=== PATIENT | female | born 1960 ===

== ENCOUNTER 2017-06-17 06:44 | Inpatient (IN) | payer OTHER ==
[2017-06-17 07:09] VITALS: BMI 30.4
[2017-06-17] MEDS ORDERED: Bupivacaine 0.5% Inj(30mL) ONE (07:33)
[2017-06-17] MEDS ORDERED: Propofol 10 mg/ml Inj (20 ML) ONE (07:37)
[2017-06-17] MEDS ORDERED: Rocuronium 10 mg/ml (5 ml) ONE ×2 (07:38→11:06)
[2017-06-17] MEDS ORDERED: ePHEDrine 50 mg/ml Inj ONE (07:38)
[2017-06-17] MEDS ORDERED: Succinylcholine 200 mg/10 ml Inj IV ONE (07:38)
[2017-06-17] MEDS ORDERED: Lidocaine 4% (Laryng-O-Jet) Kit MM ONE (07:38)
[2017-06-17] MEDS ORDERED: Midazolam 2 MG/2 ML VIAL ONE (07:38)
[2017-06-17] MEDS ORDERED: Phenylephrine 10 mg/ml Inj ONE (07:48)
[2017-06-17] MEDS ORDERED: Neostigmine 1:1000 (1 mg/ml) Inj ONE (07:48)
[2017-06-17] MEDS ORDERED: Lactated Ringer's 1,000 ML IV ONE ×3 (08:20→09:30)
[2017-06-17] MEDS ORDERED: metroNIDAZOLE 500mg/100ml NS 100 ML IVPB ONE (08:53)
[2017-06-17] MEDS ORDERED: Ciprofloxacin 400mg/200ml D5W 400 MG/200 ML BAG IVPB ONE (08:53)
[2017-06-17] MEDS ORDERED: Ciprofloxacin 400mg/200ml D5W IVPB ONE (09:15)
[2017-06-17] MEDS ORDERED: metroNIDAZOLE 500mg/100ml NS IVPB ONE (09:35)
[2017-06-17] MEDS ORDERED: Sodium Chloride 0.9% 1,000 ML IV ONE (09:45)
--- NOTE | 2017-06-17 13:42 | PCM.SURG1 ---
Surgeon's Initial Post Op Note - Surgeon's Notes Surgeon: Dr Calix Contractor Broomcorn Threshing: Dr Rome, Dr Nobles PGY2, Dr Soria PGY3 Type of Anesthesia: General Endo Pre-Operative Diagnosis: colon cancer Operative Findings: see report Post-Operative Diagnosis: as above Operation Performed: robotic left sigmoidectomy. robotic liver biopsy. left axillary deep kym dissection Specimen/Specimens Removed: sigmoid colon. excisional biopsy of liver lesion. left axillary lymph nodes Estimated Blood Loss: EBL {In ML}: 100 Blood Products Given: N/A Drains Used: No Drains (smith) Post-Op Condition: Good Date of Surgery/Procedure: 06/17/17 Time of Surgery/Procedure: 13:42
[2017-06-17] MEDS ORDERED: Lactated Ringer's 1,000 ML IV SCH (14:00)
[2017-06-17] MEDS: HYDROmorphone 0.5 mg/0.5 ml ISec IVP PRN ×4 (14:16→15:27)
[2017-06-17] MEDS: Insulin Regular 100 units/ml SC SCH ×2 (17:58→22:00)
--- NOTE | 2017-06-17 22:55 | CARD ---
APPROVED REPORT EKG Measurement Heart [id number] <Conclusion> Sinus rhythm with occasional premature ventricular complexes Otherwise normal ECG
[2017-06-18] MEDS: Lactated Ringer's 1,000 ML IV SCH ×2 (00:50→19:27)
[2017-06-18 04:50] LABS: HEMOGLOBIN 8.1 g/dL (12.0-16.0); MEAN CELL VOLUME 70.8 fl (81.0-99.0); MEAN CORPUSCULAR HEMOGLOBIN 21.9 pg (27.0-31.0); MEAN CORPUSCULAR HGB CONC 30.9 g/dL (33.0-37.0); RBC 3.7 Mil/uL (3.80-5.20); RED CELL DISTRIBUTION WIDTH 18.4 % (11.5-14.5); WHITE BLOOD COUNT 8.5 K/uL (4.8-10.8)
[2017-06-18 05:18] LABS: ALB/GLOB RATIO 0.9 (1.0-2.1); ALT/SGPT 50 U/L (9-52); AST/SGOT 50 U/L (14-36); BLOOD UREA NITROGEN 6 mg/dl (7-17); GFR AFRICAN-AMERICAN > 60; GFR NON-AFRICAN AMERICAN > 60
--- NOTE | 2017-06-18 07:23 | CP.PCM.PN ---
Subjective - Date & Time of Evaluation Date of Evaluation: 06/18/17 Time of Evaluation: 07:20 - Subjective Subjective: General Surgery: Dr Calix Pt S&E in ICU. POD#1 s/p robotic colectomy. Pt states pain is significant, only mildly controlled with QUALITY CONTROL CLERK. Pt not using button frequently as she does not want to be "doped up". Denies any fevers, chills, nausea or vomiting. Using IS. 2800 urine since OR. Objective - Vital Signs/Intake and Output Vital Signs (last 24 hours): Temp Pulse Resp BP Pulse Ox 99.6 F 109 H 21 125/74 95 06/18/17 04:00 06/18/17 04:00 06/18/17 04:00 06/18/17 04:00 06/18/17 04:00 Intake and Output: 06/18/17 06/18/17 06:59 18:59 Intake Total 1650 Output Total 650 Balance 1000 - Medications Medications: Current Medications Acetaminophen (Tylenol 325mg Tab) 650 mg PO Q6 PRN PRN Reason: Fever >100.4 F Atorvastatin Calcium (Lipitor) 40 mg PO DAILY [facility] Emtricitabine/Tenofovir (Truvada 200 Mg-300 Mg) 1 tab PO DAILY [facility] Enoxaparin Sodium (Lovenox) 40 mg SC DAILY [facility] PRN Reason: Protocol Hydromorphone HCl (Dilaudid 0.2 Mg/Ml Flat Machine Cutter) 6 mg IV CONT PRN; Protocol PRN Reason: Pain, Mild (1-3) Last Admin: 06/17/17 15:40 Dose: 6 mg Lactated Ringer's (Lactated Ringer's) 1,000 mls @ 150 mls/hr IV .Q6H40M [facility] Last Admin: 06/18/17 00:50 Dose: 150 mls/hr Insulin Human Regular (Humulin R) 0 units SC ACHS [facility] PRN Reason: Protocol Last Admin: 06/17/17 22:00 Dose: Not Given Ketorolac Tromethamine (Toradol) 30 mg IVP Q6 [facility] Stop: 06/20/17 04:01 Ondansetron HCl (Zofran Inj) 4 mg IVP Q6 PRN PRN Reason: Nausea/Vomiting Last Admin: 06/17/17 19:25 Dose: 4 mg Raltegravir (Isentress) 800 mg PO DAILY [facility] - Labs Labs: 06/18/17 04:08 06/18/17 04:08 - Constitutional Appears: Non-toxic, No Acute Distress - ENT Exam ENT Exam: Mucous Membranes Moist - Respiratory Exam Respiratory Exam: absent: Accessory Muscle Use, Respiratory Distress - Cardiovascular Exam Cardiovascular Exam: Tachycardia, REGULAR RHYTHM - GI/Abdominal Exam GI & Abdominal Exam: Soft, Tenderness (post-op and appropriate). absent: Distended, Firm, Rigid, Mass - Neurological Exam Neurological Exam: Alert, Awake, Oriented x3 - Psychiatric Exam Psychiatric exam: Normal Affect, Normal Mood - Skin Skin Exam: Normal Color, Warm Assessment and Plan - Assessment and Plan (Free Text) Assessment: 56F s/p robotic sigmoidectomy POD#1 Plan: add toradol 30mg Q6H ATC d/c smith start CLD OOB to chair ok for transfer to med/surg will cont to monitor closely d/w Dr Fifi Soria, PGY3
[2017-06-18] MEDS: Insulin Regular 100 units/ml SC SCH ×4 (07:40→21:54)
[2017-06-18] MEDS: Emtricitabine-Tenofovir 200 mg-300 mg Tab PO SCH (08:28)
[2017-06-18] MEDS: Enoxaparin 40 mg Syringe SC SCH (10:40)
[2017-06-18] MEDS ORDERED: Simethicone 80 mg Chewtab PO PRN (19:37)
[2017-06-19 07:09] LABS: HEMOGLOBIN 7.9 g/dL (12.0-16.0); MEAN CELL VOLUME 72.9 fl (81.0-99.0); MEAN CORPUSCULAR HGB CONC 30.1 g/dL (33.0-37.0); RBC 3.58 Mil/uL (3.80-5.20); RED CELL DISTRIBUTION WIDTH 18.6 % (11.5-14.5); WHITE BLOOD COUNT 8.6 K/uL (4.8-10.8)
[2017-06-19 07:31] LABS: BLOOD UREA NITROGEN 7 mg/dl (7-17); CALCIUM 8.2 mg/dL (8.4-10.2); GFR AFRICAN-AMERICAN > 60; GFR NON-AFRICAN AMERICAN > 60
[2017-06-19] MEDS: Lactated Ringer's 1,000 ML IV SCH ×4 (07:39→17:32)
--- NOTE | 2017-06-19 08:26 | CP.PCM.PN ---
Subjective - Date & Time of Evaluation Date of Evaluation: 06/19/17 Time of Evaluation: 06:00 - Subjective Subjective: General Surgery: Dr Calix s/p robotic sigmoidectomy POD#2. Patient seen and examined at bedside this AM. was resting comfortably during encounter. Pt had an episode of approx 30cc of dark bilious vomiting. Pain is controlled w/ scheduled toradol and ARTIST CONSULTANT. Currently denies fevers, chills, chest pain, shortness of breath, nausea, vomiting, diarrhea Objective - Vital Signs/Intake and Output Vital Signs (last 24 hours): Temp Pulse Resp BP Pulse Ox 98.2 F 87 20 129/72 94 L 06/19/17 08:19 06/19/17 08:19 06/19/17 08:19 06/19/17 08:19 06/19/17 08:19 - Medications Medications: Current Medications Acetaminophen (Tylenol 325mg Tab) 650 mg PO Q6 PRN PRN Reason: Fever >100.4 F Last Admin: 06/18/17 14:47 Dose: 650 mg Acetaminophen (Tylenol 325mg Tab) 650 mg PO Q6 PRN PRN Reason: Pain, Mild (1-3) Last Admin: 06/19/17 01:20 Dose: 650 mg Atorvastatin Calcium (Lipitor) 40 mg PO DAILY [facility] Last Admin: 06/18/17 08:28 Dose: 40 mg Emtricitabine/Tenofovir (Truvada 200 Mg-300 Mg) 1 tab PO DAILY [facility] Last Admin: 06/18/17 08:28 Dose: 1 tab Enoxaparin Sodium (Lovenox) 40 mg SC DAILY [facility] PRN Reason: Protocol Last Admin: 06/18/17 10:40 Dose: 40 mg Hydromorphone HCl (Dilaudid 0.2 Mg/Ml School Athletic Director) 0 mg IV Q10M PRN; Protocol PRN Reason: Pain, moderate (4-7) Last Admin: 06/18/17 20:18 Dose: 6 mg Lactated Ringer's (Lactated Ringer's) 1,000 mls @ 150 mls/hr IV .Q6H40M [facility] Last Admin: 06/19/17 07:39 Dose: Not Given Insulin Human Regular (Humulin R) 0 units SC ACHS [facility] PRN Reason: Protocol Last Admin: 06/18/17 21:54 Dose: Not Given Ketorolac Tromethamine (Toradol) 30 mg IVP Q6 [facility] Stop: 06/20/17 04:01 Last Admin: 06/19/17 03:28 Dose: 30 mg Ondansetron HCl (Zofran Inj) 4 mg IVP Q6 PRN PRN Reason: Nausea/Vomiting Last Admin: 06/19/17 00:59 Dose: 4 mg Raltegravir (Isentress) 800 mg PO DAILY [facility] Last Admin: 06/18/17 08:28 Dose: 800 mg - Labs Labs: 06/19/17 05:20 06/19/17 05:20 - Constitutional Appears: Non-toxic, No Acute Distress - Head Exam Head Exam: ATRAUMATIC - Eye Exam Eye Exam: EOMI. absent: Scleral icterus - Respiratory Exam Respiratory Exam: NORMAL BREATHING PATTERN. absent: Accessory Muscle Use, Respiratory Distress - Cardiovascular Exam Cardiovascular Exam: +S1, +S2. absent: Bradycardia, Tachycardia - GI/Abdominal Exam GI & Abdominal Exam: Guarding, Soft, Tenderness. absent: Distended, Firm, Rigid Additional comments: voluntary guarding appropriately tender around incision dressings C/D/I - Extremities Exam Extremities Exam: Normal Inspection. absent: Calf Tenderness - Neurological Exam Neurological Exam: Alert, Awake, Oriented x3 - Skin Skin Exam: Intact, Warm Assessment and Plan - Assessment and Plan (Free Text) Assessment: 56F s/p robotic sigmoidectomy POD#2 Plan: Pain control w/ scheduled Toradol will hold ARTIST CONSULTANT for now and monitor pain control will continue w/ CLD for now due to vomiting encourage IC and OOB 2chair monitor vitals discussed w/ Dr. Calix surgical attending PGY1
[2017-06-19] MEDS: Insulin Regular 100 units/ml SC SCH ×4 (08:44→21:40)
[2017-06-19] MEDS: Emtricitabine-Tenofovir 200 mg-300 mg Tab PO SCH (08:45)
[2017-06-19] MEDS: Enoxaparin 40 mg Syringe SC SCH (08:58)
--- NOTE | 2017-06-19 09:27 | PCM.OP ---
Operative Report - Operative Report Date of Surgery/Procedure: 06/17/17 Time of Surgery/Procedure: 09:00 Surgeon: Dr. Sawyer Calix Drill Hand: Dr. Drew Rome, Dr. Cordoba Anesthesia/Sedation: general/Dr. Bowen Pre-Operative Diagnosis: 2-gutkx-svmtxga colon cancer. 2-liver metastases. 3- left axillary lymph nodes whichare avidly active on recent PET CT scan Post-Operative Diagnosis: same Indication for Surgery: as above Operative Findings: recto-sigmoid cancer with multiple livere metastases and axillary node enlargement Procedure/Operation Description: 1-left recto-sgmoid colectomy with take down of the splenic flexure. 2-left ureterolysis. 3-left complete axillary dissection. 4-liver biopsy. 5-ureteral stenting with ICG infusion (separate procedure Dr. Rome). Brief History: This is a 56 year old woman referred ny Dr. Lester for recent diagnosis of colon cancer involving the recto-sigmoid colon approximatly 21 cm from the anal verge whihc was positive on endoscopic biospy. CT scan revealed multiple intrahepatic lesion and subsequent PET CT revealed finding suggestive of liver metastases plus a highly positive area in the left axilla consistent with metastatic disease. she now undergoes exploration. Description of the Procedure: The patient was brought to the operating room and after induction of endotracheal anesthesia she was prepped and drapped in the usual sterile manner. After Dr. Rome infused ICG through ureteral stents bilaterally (separate dictation Dr. Rome) the area above the umbilicus was injectd with marcaine. Using a 15 blade the skin was enetered and the fascia was brought anteriorly and opened with sharp technique. An 8 mm robotic trocar was palced and the abdomen was infused with pneumoperitoneum. The abdomen was inspected and mutliple liver lesions were noted consistent with the imaging findings. Four other trocars were placed stategically in the usal fashion. OPERATION #1: After taking control of the robtic console the left colon was mobilized from just at the levl of the splenic flexure to the rectum distally. The sleion was obvious and protruding to the level of the serosa. With the colon retracted laterally the mesnetery was incised with elelctrocautery in oder to have more than a 5 cm margin both distally and proximally. The left ureter was dissected from the left pelvic side wall using ICG imaging intermittently during the disection. With the ureter always in vison after it was dissected the colon was mobilized accordingly. Then the small vessel were dessicated accordingly from the take off of the inferior mesenteric artery to the colon in order to alow for an adequate number of lymph nodes to be included in the specimen. The inferior mesenteric artery was dissectd separately and clipped with vessel clips. Once comopleted the colon was transected proximally with the robotic stapler and distally in the same fashion. The specimen was left in-situ. A colonic anastomosis was created by a hand-sewn technique with a side to side anastomosis using continuous 3-0 vicryl for the mucosa and interrupted 3-0 vicryl for the serosa. The anastomosis was completed and felt to be adeqaute. OPERATION #2: The robot was then un-docked and re-docked to the upper abdomen where multiple liver lesions were noted. Using blunt and sharp dissection with the aid of electrocautery a lesion in segment 4 of the left hemiliver was excided en-bloc with particular attention to hemostasis. This was snet separately to pathology. Hemostasis was denmed adeqaute. The robot was then discontected and uner videoscopic control both the liver and the colon anastomosis were exaniend and felt to be adeqaute. The pneumperitoneum was released and all trocars were removed. The umbilical incision was extended for approximately 5 cm andthe fascia was opened. The left recto-sigmoid coln specimen was removed and sent to pathology separately. The trocar sites were clsoed with 2-0 vicryl and the mini-midline incisioin was closed with 1 PDS for the facsia. Jimbo were placed on the skin and a clean dressing was applied. OPERATION #3: With the patient still intubated the left axilla was prepped and drapped in the usual sterile manner. The previously marked area of the axilla was palpated and the lesions were felt. An incison waas made into the skin with a 15 blade and with blunt and sharp disection with the aid of electocautery the mass of lymph nodes was dissected en-bloc to the level of the axillary vein with meticuloius attetnion to hemostasis and attention to the axillary nerves. thes lesion was removved en-bloc and sent to pathology separately. the skin was closed with continuous 3-0 vicryl and 4-0 monocryl. A clean dressoing was applied. The aptient was then awakened, extubated and brought to the recovery room in stable condition. Estimated Blood Loss: 100 cc Blood Replaced: 2700 cc crystalloids Sponge/Instrument Count: correct Drains: none Complications: none Specimen: 5-[id number] colon. 2-liver biopsy. 3-complete axillary lymph node biopsy Discharge & Condition: stable
[2017-06-20] MEDS: Lactated Ringer's 1,000 ML IV SCH ×4 (02:29→20:50)
--- NOTE | 2017-06-20 07:48 | CP.PCM.PN ---
Subjective - Date & Time of Evaluation Date of Evaluation: 06/20/17 Time of Evaluation: 07:46 - Subjective Subjective: General Surgery: Dr Calix Pt S&E. OOB and ambulating on 6T. Pt reports she is doing well. Pain is controlled on toradol. Minimal narcotic use. Pt reports she is passing flatus. Denies any further N/V since discontinuing MOTORIZED SQUAD COMMANDING OFFICER use. Denies f/c, sob or chest pain. Tolerating CLD. Objective - Vital Signs/Intake and Output Vital Signs (last 24 hours): Temp Pulse Resp BP Pulse Ox 98.0 F 87 20 142/82 98 06/20/17 00:58 06/20/17 00:58 06/20/17 00:58 06/20/17 00:58 06/20/17 00:58 - Medications Medications: Current Medications Acetaminophen (Tylenol 325mg Tab) 650 mg PO Q6 PRN PRN Reason: Fever >100.4 F Last Admin: 06/18/17 14:47 Dose: 650 mg Atorvastatin Calcium (Lipitor) 40 mg PO DAILY [facility] Last Admin: 06/19/17 08:45 Dose: 40 mg Emtricitabine/Tenofovir (Truvada 200 Mg-300 Mg) 1 tab PO DAILY [facility] Last Admin: 06/19/17 08:45 Dose: 1 tab Enoxaparin Sodium (Lovenox) 40 mg SC DAILY [facility] PRN Reason: Protocol Last Admin: 06/19/17 08:58 Dose: 40 mg Lactated Ringer's (Lactated Ringer's) 1,000 mls @ 75 mls/hr IV .[id number] [facility] Insulin Human Regular (Humulin R) 0 units SC ACHS [facility] PRN Reason: Protocol Last Admin: 06/19/17 21:40 Dose: Not Given Ondansetron HCl (Zofran Inj) 4 mg IVP Q6 PRN PRN Reason: Nausea/Vomiting Last Admin: 06/19/17 13:59 Dose: 4 mg Raltegravir (Isentress) 800 mg PO DAILY [facility] Last Admin: 06/19/17 08:45 Dose: 800 mg - Labs Labs: 06/19/17 05:20 06/19/17 05:20 - Constitutional Appears: Non-toxic, No Acute Distress - ENT Exam ENT Exam: Mucous Membranes Moist - Respiratory Exam Respiratory Exam: absent: Accessory Muscle Use, Respiratory Distress - Cardiovascular Exam Cardiovascular Exam: REGULAR RHYTHM. absent: Tachycardia - GI/Abdominal Exam GI & Abdominal Exam: Soft, Tenderness (post-op and appropriate). absent: Distended, Firm, Guarding, Rigid Additional comments: midline dressing changed at bedside, c/d/i. left axillary dressing c/d/i - Neurological Exam Neurological Exam: Alert, Awake, Oriented x3 - Psychiatric Exam Psychiatric exam: Normal Affect, Normal Mood - Skin Skin Exam: Normal Color, Warm Assessment and Plan - Assessment and Plan (Free Text) Assessment: 56F POD#3 s/p robotic sigmoidectomy, liver bx, left axillary dissection Plan: adv to regular soft diet d/c MOTORIZED SQUAD COMMANDING OFFICER cont toradol will add percocet PRN OOB and ambulate with PT f/u path Liver CT triple phase d/c planning d/w Dr Fifi Soria, PGY3
[2017-06-20] MEDS ORDERED: Iohexol 300 100 ML IJ ONE (08:42)
[2017-06-20] MEDS ORDERED: Sodium Chloride 0.9% 100 ML ONE (08:42)
[2017-06-20] MEDS ORDERED: Oxycodone/Acetaminophen 5/325 mg Tab PO PRN (08:56)
--- NOTE | 2017-06-20 08:59 | OP ---
PROCEDURE DATE: PREOPERATIVE DIAGNOSES: Colon cancer with liver metastasis. POSTOPERATIVE DIAGNOSES: Colon cancer with liver metastasis. PROCEDURE PERFORMED: Cystoscopy with bilateral ureteral catheterization and injection of dye. SURGEON: Drew Rome MD TYPE OF ANESTHESIA: General endotracheal. ESTIMATED BLOOD LOSS: Minimal. COMPLICATIONS: None. INDICATIONS FOR THE PROCEDURE: The patient is a 56-year-old who was undergoing a colectomy for metastatic colon cancer and liver biopsy and I was asked by Dr. Calix from General Surgery to perform a cystoscopy with stenting of the ureters due to the difficulty and complication of the procedure. This was going to be robotic surgery therefore injection of dye would allow to identify the ureters due to florescent technology. The patient was consented and taken to the OR. DESCRIPTION OF PROCEDURE: After adequate anesthesia was obtained, the patient was placed in dorsal lithotomy position. She was prepped and draped in the surgical gown and gloved. At this point, a cystoscope was inserted into the bladder under direct visualization. The bladder were visualized, appeared to be in normal in size with no evidence of stones, polyps or any other abnormalities. Both ureters, ureteral ostia were in the normal anatomical position. A 5-[place]izen [place] open ended catheter was placed inside to the left ureter and advanced all the way down to the distal ureter. A 5 mL of IC-Green were injected into the left ureter. At this point, the catheter was retrieved. Attention was then on the right ureter, where catheter was inserting to the right ureteral orifice all the way to the distal ureter and 5 mL of IC-Green was then injected into the distal ureter. The catheter was then removed. The cystoscope was removed and a 16-Citizen [place] Melgar was placed in the bladder. At the end of the procedure, all tapes and instruments counts were correct. The patient was handed over to Dr. Calix who performed colectomy and liver biopsy. Drew Rome MD
[2017-06-20 09:02] LABS: MEAN CELL VOLUME 71.9 fl (81.0-99.0); MEAN CORPUSCULAR HEMOGLOBIN 22.1 pg (27.0-31.0); MEAN CORPUSCULAR HGB CONC 30.7 g/dL (33.0-37.0); RBC 3.63 Mil/uL (3.80-5.20); RED CELL DISTRIBUTION WIDTH 20.8 % (11.5-14.5)
[2017-06-20] MEDS: Enoxaparin 40 mg Syringe SC SCH (09:11)
[2017-06-20] MEDS: Emtricitabine-Tenofovir 200 mg-300 mg Tab PO SCH (09:11)
[2017-06-20 09:12] LABS: BLOOD UREA NITROGEN 8 mg/dl (7-17); CALCIUM 8.3 mg/dL (8.4-10.2); GFR AFRICAN-AMERICAN > 60; GFR NON-AFRICAN AMERICAN > 60
[2017-06-20] MEDS: Insulin Regular 100 units/ml SC SCH ×4 (09:12→22:03)
[2017-06-20] MEDS: Bisacodyl 5mg EC Tab PO SCH (12:03)
--- NOTE | 2017-06-20 16:12 | CT ---
PROCEDURE: CT Abdomen and Pelvis with and without intravenous contrast HISTORY: eval liver lesions COMPARISON: Comparison is made with the previous CT of the chest including upper abdomen dated 02/27/2014 previous ultrasound of the abdomen dated 06/15/2012 TECHNIQUE: Axial images of the abdomen were obtained in the pre contrast, portal venous and delayed phases of enhancement. Coronal and sagittal reformats were generated. Contrast dose: 95 cc of Omnipaque 300 Radiation dose: Total exam DLP = 2938.46 mGy-cm. This CT exam was performed using one or more of the following dose reduction techniques: Automated exposure control, adjustment of the mA and/or kV according to patient size, and/or use of iterative reconstruction technique. FINDINGS: LOWER THORAX: Airspace consolidation noted at the right middle lobe and right lower lobe may represent pneumonia or less likely atelectasis. Small right pleural effusion is also noted. There is airspace consolidation at the left lung base associated with trace left pleural effusion. LIVER: The liver is heterogeneous mildly enlarged. There is 3 x 1.5 centimeter slightly low-attenuation lesion noted at the anterior peripheral aspect of the right liver lobe demonstrates slightly less enhancement compared to the rest of the liver. There is also adjacent 1.7 centimeter slightly low-attenuation lesion in the right liver lobe adjacent to the falciform ligament. There is also slightly low-attenuation lesion at the peripheral inferior aspect of the right liver lobe measures 1.7 centimeter. These lesions are new compared to the previous study. GALLBLADDER AND BILE DUCTS: Unremarkable. PANCREAS: Unremarkable. No gross lesion or ductal dilatation. SPLEEN: The spleen is mildly enlarged measures 13.1 centimeter in the largest diameter. ADRENALS: Unremarkable. No mass. KIDNEYS AND URETERS: Unremarkable. No hydronephrosis. No solid mass. VASCULATURE: Unremarkable. No aortic aneurysm. BOWEL: There is a duodenal wall thickening noted. There are postsurgical changes and bowel anastomosis noted at the left lower abdomen. There is adjacent fat stranding and trace fluid seen in the left mid and lower abdomen. No evidence of bowel obstruction. APPENDIX: No evidence of appendicitis. PERITONEUM: Trace amount of fluid noted in the lower abdomen and small amount of fluid seen in the pelvis. No evidence of free air. LYMPH NODES: Unremarkable. No enlarged lymph nodes. BLADDER: Unremarkable. REPRODUCTIVE: Unremarkable. BONES: No acute fracture. OTHER FINDINGS: None. IMPRESSION: Three slightly low-attenuation mass lesions in the right liver with the largest lesion seen at the anterior aspect of the right liver lobe measures 3 centimeter. The possibility of liver metastasis should be considered. Postsurgical changes suggestive of recent bowel anastomosis at the left lower abdomen. Adjacent fat stranding and trace fluid noted in the left mid and lower abdomen. Small amount of fluid in also noted in the pelvis. No evidence of free air or discrete fluid collection. Mild splenomegaly. Bilateral lower lobe and right middle lobe airspace consolidation may represent aspiration pneumonia or less likely atelectasis.
[2017-06-21 08:23] LABS: HEMOGLOBIN 8.2 g/dL (12.0-16.0); MEAN CELL VOLUME 71.5 fl (81.0-99.0); MEAN CORPUSCULAR HGB CONC 30.8 g/dL (33.0-37.0); RBC 3.74 Mil/uL (3.80-5.20); RED CELL DISTRIBUTION WIDTH 20.7 % (11.5-14.5); WHITE BLOOD COUNT 5.2 K/uL (4.8-10.8)
[2017-06-21 08:36] LABS: BLOOD UREA NITROGEN 10 mg/dl (7-17); CALCIUM 8.5 mg/dL (8.4-10.2); GFR AFRICAN-AMERICAN > 60; GFR NON-AFRICAN AMERICAN > 60
[2017-06-21] MEDS ORDERED: Benzocaine/Menthol (Cepacol) Lozenge PO PRN (08:36)
[2017-06-21] MEDS: Emtricitabine-Tenofovir 200 mg-300 mg Tab PO SCH ×2 (10:37→16:41)
[2017-06-21] MEDS: Bisacodyl 5mg EC Tab PO SCH ×2 (10:38→16:40)
[2017-06-21] MEDS: Insulin Regular 100 units/ml SC SCH ×4 (10:38→22:05)
[2017-06-21] MEDS ORDERED: Propofol 10 mg/ml Inj (20 ML) ONE (11:48)
[2017-06-21] MEDS ORDERED: Phenylephrine 10 mg/ml Inj ONE (11:57)
[2017-06-21] MEDS ORDERED: Protamine 50mg/5mL Inj IV ONE (12:27)
[2017-06-21] MEDS ORDERED: Lidocaine 1% Inj (20ml) ONE (12:28)
[2017-06-21] MEDS ORDERED: Iohexol 300 100 ML IJ ONE (12:28)
[2017-06-21] MEDS ORDERED: Lactated Ringer's 1,000 ML IV ONE (12:40)
[2017-06-21] MEDS ORDERED: Midazolam 2 MG/2 ML VIAL ONE (12:48)
[2017-06-21] MEDS ORDERED: Albuterol HFA 90 mcg/actuation (8 g) ONE (13:42)
[2017-06-21] MEDS ORDERED: Lactated Ringer's 1,000 ML IV SCH (14:00)
--- NOTE | 2017-06-21 14:21 | RAD ---
PROCEDURE: Intraoperative Fluoroscopy. HISTORY: PORT A CATH FINDINGS: Fluoroscopic assistance was provided. 49.2 seconds fluoroscopy time utilized during this procedure. Please refer to the operative report for additional details.
--- NOTE | 2017-06-21 14:22 | RAD ---
PROCEDURE: CHEST RADIOGRAPH, 1 VIEW HISTORY: s/p right subclavian port-a-cath COMPARISON: Go comparison made with chest radiograph 05/15/2016. None available. FINDINGS: Interval placement right subclavian Port-A-Cath with tip in the SVC. LUNGS: Elevation right hemidiaphragm with mild right basilar atelectasis. Questionable tiny right-sided effusion. Left lung appears relatively clear. PLEURA: No pneumothorax or pleural fluid seen. CARDIOVASCULAR: Heart is mildly enlarged OSSEOUS STRUCTURES: No significant abnormalities. VISUALIZED UPPER ABDOMEN: Normal. OTHER FINDINGS: None. IMPRESSION: Interval placement right sided MediPort as above. Elevation right hemidiaphragm with mild right basilar atelectasis. Questionable small right-sided effusion. No evidence of pneumothorax.
--- NOTE | 2017-06-21 15:56 | PCM.SURG1 ---
Surgeon's Initial Post Op Note - Surgeon's Notes Surgeon: Dr Calix Director Investment Banking: Dr Soria PGY3 Type of Anesthesia: IV Sedation Pre-Operative Diagnosis: colon cancer Operative Findings: see report Post-Operative Diagnosis: as above Operation Performed: attempted RIJ insertion with US. Right subclavian port-a- cath insertion w/ flouroscopic guidance Specimen/Specimens Removed: none Estimated Blood Loss: EBL {In ML}: 10 Blood Products Given: N/A Drains Used: No Drains Post-Op Condition: Good Date of Surgery/Procedure: 06/21/17 Time of Surgery/Procedure: 15:55
[2017-06-22] MEDS: Insulin Regular 100 units/ml SC SCH ×2 (07:07→11:37)
[2017-06-22 07:40] VITALS: BP 157/81; PULSE 69; RESP 19; TEMP 98.2; O2SAT 97
[2017-06-22] MEDS: Bisacodyl 5mg EC Tab PO SCH (08:02)
[2017-06-22] MEDS: Emtricitabine-Tenofovir 200 mg-300 mg Tab PO SCH (08:03)
[2017-06-22 11:31] LABS: % CD4 (T HELPER CELL) 23 Percent (30-61); % CD8 (SUPPRESSOR T CELL) 32 Percent (12-42); ABSOLUTE CD4 CELLS 240 Cells/mcL (490-1740); ABSOLUTE CD8 CELLS 331 Cells/mcL (180-1170); ABSOLUTE LYMPHOCYTES 1030 Cells/mcL (850-3900); HELPER/SUPPRESSOR RATIO 0.73 Ratio (0.86-5.00)
--- NOTE | 2017-06-22 15:55 | CP.PCM.DIS ---
Provider - Provider Date of Admission: 06/17/17 13:32 Attending physician: Sawyer Calix MD Primary care physician: Gary Anderson MD Time Spent in preparation of Discharge (in minutes): 30 Hospital Course - Lab Results Lab Results: Micro Results 06/17/17 13:45 Other: Please Indicate Gram Stain - Final 06/17/17 13:45 Other: Please Indicate Wound Culture - Final No growth. 06/17/17 18:30 Naris MRSA Culture (Admit) - Final MRSA NOT DETECTED Most Recent Lab Values WBC 5.2 K/uL (4.8-10.8) 06/21/17 08:05 RBC 3.74 Mil/uL (3.80-5.20) L 06/21/17 08:05 Hgb 8.2 g/dL (12.0-16.0) L 06/21/17 08:05 Hct 26.7 % (34.0-47.0) L 06/21/17 08:05 MCV 71.5 fl (81.0-99.0) L 06/21/17 08:05 MCH 22.0 pg (27.0-31.0) L 06/21/17 08:05 MCHC 30.8 g/dL (33.0-37.0) L 06/21/17 08:05 RDW 20.7 % (11.5-14.5) H 06/21/17 08:05 Plt Count 274 K/uL (130-400) 06/21/17 08:05 Sodium 142 mmol/l (132-148) 06/21/17 08:05 Potassium 3.7 MMOL/L (3.6-5.0) 06/21/17 08:05 Chloride 108 mmol/L (98-107) H 06/21/17 08:05 Carbon Dioxide 23 mmol/L (22-30) 06/21/17 08:05 Anion Gap 15 (10-20) 06/21/17 08:05 BUN 10 mg/dl (7-17) 06/21/17 08:05 Creatinine 0.5 mg/dl (0.7-1.2) L 06/21/17 08:05 Est GFR ( Amer) > 60 06/21/17 08:05 Est GFR (Non-Af Amer) > 60 06/21/17 08:05 POC Glucose (mg/dL) 237 mg/dL (65-110) H 06/22/17 11:12 Random Glucose 230 mg/dL (65-105) H 06/21/17 08:05 Calcium 8.5 mg/dL (8.4-10.2) 06/21/17 08:05 Total Bilirubin 0.4 mg/dl (0.2-1.3) 06/18/17 04:08 AST 50 U/L (14-36) H 06/18/17 04:08 ALT 50 U/L (9-52) 06/18/17 04:08 Alkaline Phosphatase 129 U/L (38-126) H 06/18/17 04:08 Total Protein 6.3 G/DL (6.3-8.2) 06/18/17 04:08 Albumin 3.0 g/dL (3.5-5.0) L D 06/18/17 04:08 Globulin 3.3 gm/dL (2.2-3.9) 06/18/17 04:08 Albumin/Globulin Ratio 0.9 (1.0-2.1) L 06/18/17 04:08 Absolute Lymphs (Flow) 1030 Cells/mcL (850-3900) 06/21/17 17:36 % CD4 Cells 23 Percent (30-61) L 06/21/17 17:36 Absolute CD4 Count 240 Cells/mcL (490-1740) L 06/21/17 17:36 T-Help/Suppress Ratio 0.73 Ratio (0.86-5.00) L 06/21/17 17:36 % CD8 Cells 32 Percent (12-42) 06/21/17 17:36 Absolute CD8 Count 331 Cells/mcL (180-1170) 06/21/17 17:36 Blood Type O NEGATIVE 06/17/17 07:25 Blood Type Confirm O NEGATIVE 06/17/17 08:29 Antibody Screen Negative 06/17/17 07:25 Crossmatch See Detail 06/17/17 07:25 BBK History Checked No verified bt 06/17/17 07:25 - Hospital Course Hospital Course: 56 y/o F w/ stage [address] to [facility] on 06/17/17 for elective Robotic colon resection, liver biopsy, and axillary lymph node dissection. Pt tolerated the procedure well with no complications. Pt was kept for pain management and to monitor return of bowel function. Once pt was tolerating a regular diet, pt underwent portacath placement. Pt tolerated the procedure well w/ no complications. Pt was kept an additional night for pain management and monitor. This morning, pt is OOB to chair, tolerating PO intake. Port is functioning w/ no complications. Pain is well controlled w/ PO medications. Pt is cleared for discharge to home w/ instructions to see Dr. Calix in office next week. Discharge Exam - Head Exam Head Exam: ATRAUMATIC, NORMAL INSPECTION - Eye Exam Eye Exam: Normal appearance - ENT Exam ENT Exam: Mucous Membranes Moist - Respiratory Exam Respiratory Exam: NORMAL BREATHING PATTERN. absent: Accessory Muscle Use, Respiratory Distress - Cardiovascular Exam Cardiovascular Exam: absent: Bradycardia, Tachycardia - GI/Abdominal Exam GI & Abdominal Exam: Soft, Tenderness (minimal TTP). absent: Distended, Guarding, Rebound, Rigid Additional comments: dressing c.d.i abd binder in place - Extremities Exam Extremities exam: normal inspection - Neurological Exam Neurological exam: Alert, Oriented x3 - Psychiatric Exam Psychiatric exam: Normal Affect, Normal Mood - Skin Skin Exam: Dry, Normal Color, Warm Discharge Plan - Follow Up Plan Condition: GOOD Disposition: HOME/ ROUTINE Instructions: Portacath (DC), Cystoscopy (DC), Colectomy Additional Instructions: follow up with primary MD in 7-[address] Calix's office for an appointment next week Take all medication as prescribed Pt may take over the counter pain medication Tylenol every 4-6hours Advil/Motrin every 6 hours or Aleve every 12 hours Pt may shower Do not soak incisions no pools, tubs, baths no heavy lifting for 3weeks Visiting Nurse Services eval at home Referrals: Gary Anderson MD [Primary Care Provider] - Sawyer Calix MD [Medical Doctor] -
== END 2017-06-22 12:22 | disposition home health service (06) | DRG 330 ==
LOC: H.OPSURG 06:44 → H.ICU/CCU 13:32 → H.MEDSURG1 06-18 11:15
PROVIDERS: ADMIT Surgery; ATTEND Surgery
PROC: 07T60ZZ Resection of Left Axillary Lymphatic, Open Approach (ICD-10-PCS; 2017-06-17)
PROC: 0TN70ZZ Release Left Ureter, Open Approach (ICD-10-PCS; 2017-06-17)
PROC: 0T788DZ Dilation of Bilateral Ureters with Intraluminal Device, Via Natural or Artificial Opening Endoscopic (ICD-10-PCS; 2017-06-17)
PROC: 8E0W0CZ Robotic Assisted Procedure of Trunk Region, Open Approach (ICD-10-PCS; 2017-06-17)
PROC: 0DTN0ZZ Resection of Sigmoid Colon, Open Approach (ICD-10-PCS; principal; 2017-06-17 08:45)
PROC: 0FB20ZX Excision of Left Lobe Liver, Open Approach, Diagnostic (ICD-10-PCS; 2017-06-17 08:45)
DX: C19 Malignant neoplasm of rectosigmoid junction (principal); C78.7 Secondary malignant neoplasm of liver and intrahepatic bile duct; C77.3 Secondary and unspecified malignant neoplasm of axilla and upper limb lymph nodes; Z88.1 Allergy status to other antibiotic agents; Z88.0 Allergy status to penicillin

== ENCOUNTER 2017-07-08 12:40 | Inpatient (IN) | payer OTHER ==
[2017-07-08 12:41] VITALS: BMI 30.4
[2017-07-08] MEDS ORDERED: Sodium Chloride 0.9% 1,000 ML IV STA (13:12)
--- NOTE | 2017-07-08 13:22 | ED PDOC ---
HPI:Nausea, Vomiting, Diarrhea Time Seen by Provider: 07/08/17 13:07 Chief Complaint (Nursing): GI Problem Chief Complaint (Provider): GI Problem History Per: Patient History/Exam Limitations: no limitations Onset/Duration Of Symptoms: Days (x2) Current Symptoms Are (Timing): Still Present Additional Complaint(s): 56 year old female with medical history of colon cancer, HIV, diabetes and hypercholesterolemia, presents to the emergency department with a complaint of nausea and vomiting status post chemo treatment yesterday for metastatic colon cancer. She denied any fever, chills or diarrhea. Patient reported history of colon resection surgery on 06/22/17. PMD: none provided Past Medical History Reviewed: Historical Data, Nursing Documentation, Vital Signs Vital Signs: Last Vital Signs Temp 98.3 F 07/08/17 12:44 Pulse 94 H 07/08/17 12:44 Resp 20 07/08/17 12:44 BP 122/77 07/08/17 12:44 Pulse Ox 98 07/08/17 12:44 - Medical History PMH: Anemia, Arthritis (feet), Asthma, Bronchitis, COPD, Diabetes, Fractures, HIV, Hypercholesterolemia, Pneumonia Denies: Chronic Kidney Disease - Surgical History Surgical History: Appendectomy, - Family History Family History: States: Unknown Family Hx - Social History Current smoker - smoking cessation education provided: No Alcohol: None Drugs: Denies - Home Medications Home Medications: Ambulatory Orders Medication Instructions Recorded Emtricitabine/Tenofovir Diso 1 tab PO DAILY 05/15/16 [Truvada 200 MG-300 MG] Insulin Aspart [Novolog Flexpen] 18 unit SQ AC 05/15/16 Insulin Glargine,Hum.rec.anlog 60 unit SQ DAILY 05/15/16 [Toujeo Solostar] Raltegravir Potassium [Isentress] 800 mg PO DAILY 05/15/16 Rosuvastatin Calcium [Crestor] 20 mg PO DAILY 05/15/16 Acetaminophen [Tylenol 325mg tab] 650 mg PO Q6 PRN tab 06/22/17 - Allergies Allergies/Adverse Reactions: Allergies Allergy/AdvReac Type Severity Reaction Status Date / Time levofloxacin [From Levaquin] Allergy NAUSEA Verified 05/27/15 11:34 Penicillins Allergy RASH Verified 05/15/16 12:51 moxifloxacin HCl AdvReac NAUSEA Verified 05/27/15 11:35 [From Avelox] Review of Systems ROS Statement: Except As Marked, All Systems Reviewed And Found Negative Constitutional: Negative for: Fever, Chills Gastrointestinal: Positive for: Nausea, Vomiting. Negative for: Diarrhea Physical Exam - Reviewed Nursing Documentation Reviewed: Yes Vital Signs Reviewed: Yes - Physical Exam Appears: Positive for: No Acute Distress ENT: Positive for: Pharynx Is (within normal limits), Other (dry mucous membranes) Cardiovascular/Chest: Positive for: Regular Rate, Rhythm, Chest Non Tender Respiratory: Positive for: Normal Breath Sounds. Negative for: Decreased Breath Sounds, Wheezing, Respiratory Distress Gastrointestinal/Abdominal: Positive for: Normal Exam, Bowel Sounds (present), Soft. Negative for: Tenderness Extremity: Positive for: Normal ROM (upper/lower). Negative for: Pedal Edema ( bilateral), Calf Tenderness (bilateral) Neurologic/Psych: Positive for: Alert (x3), Oriented. Negative for: Motor/ Sensory Deficits - ECG O2 Sat by Pulse Oximetry: 98 (RA) Pulse Ox Interpretation: Normal Medical Decision Making Medical Decision Making: Initial Impression: Nausea; Vomiting; Colon CA Initial Plan: * EKG * CMP * Urine dipstick * CBC * NS 1,000ml IV per 200mls/hr * Zofran 4mg IVP Scribe Attestation: Documented by Mariajose Manrique, acting as a scribe for John High MD. Provider Scribe Attestation: All medical record entries made by the Scribe were at my direction and personally dictated by me. I have reviewed the chart and agree that the record accurately reflects my personal performance of the history, physical exam, medical decision making, and the department course for this patient. I have also personally directed, reviewed, and agree with the discharge instructions and disposition. Disposition - Disposition Forms: Us[employer] (Danish)
[2017-07-08 13:26] LABS: BASO # 0.1 K/uL (0.0-0.2); BASO % 0.3 % (0.0-2.0); EOS # 0.1 K/uL (0.0-0.7); EOS % 0.4 % (0.0-4.0); HEMOGLOBIN 10.6 g/dL (12.0-16.0); LYMPH # 1.6 K/uL (1.0-4.3); LYMPH % 8.1 % (20.0-40.0); MEAN CELL VOLUME 72.3 fl (81.0-99.0); MEAN CORPUSCULAR HGB CONC 30.5 g/dL (33.0-37.0); MEAN PLATELET VOLUME 8.5 fl (7.2-11.7); MONO # 0.2 K/uL (0.0-0.8); MONO % 0.8 % (0.0-10.0); NEUT # 18.2 K/uL (1.8-7.0); NEUT % 90.4 % (50.0-75.0); PLATELET COUNT 291 K/uL (130-400); RED CELL DISTRIBUTION WIDTH 23.5 % (11.5-14.5); WHITE BLOOD COUNT 20.1 K/uL (4.8-10.8)
[2017-07-08 13:41] LABS: ALB/GLOB RATIO 0.9 (1.0-2.1); ALBUMIN 3.8 g/dL (3.5-5.0); ALT/SGPT 50 U/L (9-52); AST/SGOT 59 U/L (14-36); BLOOD UREA NITROGEN 18 mg/dl (7-17); CALCIUM 9.4 mg/dL (8.4-10.2); GFR AFRICAN-AMERICAN > 60; GFR NON-AFRICAN AMERICAN > 60
[2017-07-08 14:22] LABS: ANISOCYTOSIS MODERATE; BANDS 3 % (0-2); BLASTS 1 % (0-0); HYPOCHROMIC SLIGHT; LYMPHOCYTE 8 % (20-50); MONOCYTE 1 % (0-10); NEUTROPHIL 87 % (42-75); PLATELET ESTIMATE NORMAL (NORMAL); POIKILOCYTOSIS SLIGHT; TOTAL CELLS COUNTED 100
[2017-07-08 14:23] LABS: OVALOCYTES SLIGHT; STOMATOCYTES SLIGHT
--- NOTE | 2017-07-08 14:23 | RAD ---
HISTORY: cough COMPARISON: Portable chest 06/21/2017. FINDINGS: Right-sided MediPort unchanged in position. LUNGS: Improved aeration is seen the medial right base with no definite airspace disease appreciated at this time. Trace linear atelectasis is appreciate the inferior left lung zone laterally. No left-sided infiltrate. PLEURA: No significant pleural effusion identified, no pneumothorax apparent. CARDIOVASCULAR: Cardiac size appears mildly prominent once again. No pulmonary vascular derangement. OSSEOUS STRUCTURES: No significant abnormalities. VISUALIZED UPPER ABDOMEN: Of the right hemidiaphragm stable. OTHER FINDINGS: None. IMPRESSION: Diminishing airspace disease right base, nearly completely resolved with linear atelectasis seen at the left base laterally. Stable mildly prominent cardiac silhouette.
--- NOTE | 2017-07-08 15:27 | ED PDOC ---
- Laboratory Results Result Diagrams: 07/08/17 13:15 07/08/17 13:15 Interpretation Of Abn Labs: 20.1 wbc, 3 bands - ECG ECG: Positive for: Interpreted By Me, Viewed By Me ECG Rhythm: Positive for: Normal QRS, Normal ST Segment, Sinus Rhythm O2 Sat by Pulse Oximetry: 98 (RA) Pulse Ox Interpretation: Normal - Radiology X-Ray: Read By Radiologist X-Ray Interpretation: No Acute Disease - CT Scan/US ct Other Rad Studies (CT/US): Read By Radiologist Other Rad Interpretation: mets dz; can't see appendix - Progress ED Course And Treament: 1527: Stable. Took over care from Dr. High. Glen on labs and imaging. Here with abd pain and vomit; chemo yesterday. 1742: Spoke with Dr. Olivarez. Will consult. Aware of ct findings and no appendix seen. Will manage and monitor accordingly. Spoke with [facility] resident. Will admit tele. Disposition - Clinical Impression Clinical Impression: Abdominal pain, Metastatic cancer, Vomiting, Sepsis - POA Present On Arrival: None - Disposition Disposition: Admitted as In-Patient Disposition Time: 17:47 Condition: FAIR
[2017-07-08] MEDS ORDERED: Sodium Chloride 0.9% 100 ML ONE (15:29)
[2017-07-08] MEDS ORDERED: Iohexol 300 100 ML IJ ONE (15:29)
--- NOTE | 2017-07-08 16:49 | CT ---
PROCEDURE: CT Abdomen and Pelvis with contrast HISTORY: vomiting h/o colon Ca COMPARISON: Abdomen pelvis CT, liver protocol 06/20/2017. TECHNIQUE: Contrast dose: Omnipaque 300, 90 cc Radiation dose: Total exam DLP = 1102.80 mGy-cm. This CT exam was performed using one or more of the following dose reduction techniques: Automated exposure control, adjustment of the mA and/or kV according to patient size, and/or use of iterative reconstruction technique. FINDINGS: LOWER THORAX: Resolution of prior right basilar infiltrate or atelectasis with linear atelectasis identified at both bases. Cardiac silhouette is stable. No pleural or pericardial effusion. Small hiatal hernia encountered. LIVER: There are numerous small hypo attenuating, poorly enhancing lesions scattered throughout the liver most compatible with metastatic disease. The largest appears to measure the dome of liver measuring 2.4 by 2.1 cm. The diagnosis is quite likely given prior history of colon carcinoma. This is the presumption of the prior abdomen pelvis CT exam 06/20/2017 which had a different pattern of enhancement given liver protocol and several of these foci were more difficult to visualize in the prior CT. GALLBLADDER AND BILE DUCTS: Unremarkable. PANCREAS: Unremarkable. No gross lesion or ductal dilatation. SPLEEN: Unremarkable. ADRENALS: Unremarkable. No mass. KIDNEYS AND URETERS: Unremarkable. No hydronephrosis. No solid mass. VASCULATURE: Unremarkable. No aortic aneurysm. BOWEL: Diminished postoperative changes are appreciated and prior segmental resection of the apparent proximal sigmoid colon. No bowel obstruction is appreciated and there is no acute bowel finding appreciated throughout small and large bowel loops in this study without oral contrast. The stomach is collapsed. APPENDIX: Not identified. PERITONEUM: Unremarkable. No free fluid. No free air. LYMPH NODES: Unremarkable. No enlarged lymph nodes. BLADDER: Unremarkable. REPRODUCTIVE: Unremarkable. BONES: No acute fracture. OTHER FINDINGS: None. IMPRESSION: Findings most compatible with multifocal hepatic metastases to the liver with prior segmental sigmoid resection of postoperative change diminishing no significant lymphadenopathy at this time or other definitive visceral metastasis evident grossly. No definite acute bowel findings.
[2017-07-08 17:58] LABS: VENOUS BLOOD GAS BASE EXCESS 0.3 mmol/L (0.0-2.0); VENOUS BLOOD GAS PCO2 42 mmHg (40-60); VENOUS BLOOD GAS PO2 47 mm/Hg (30-55); VENOUS BLOOD PH 7.39 (7.32-7.43)
[2017-07-08 18:26] LABS: SQUAMOUS EPITHIAL 4 /hpf (0-5); URINE BACTERIA FEW (<OCC); URINE BILIRUBIN NEGATIVE (NEGATIVE); URINE BLOOD NEGATIVE (NEGATIVE); URINE CLARITY SLIGHTY-CLOUDY (Clear); URINE COLOR YELLOW (YELLOW); URINE GLUCOSE (UA) >=500 mg/dL (Normal); URINE LEUKOCYTE ESTERASE NEG Leu/uL (Negative); URINE PROTEIN 30 mg/dL (NEGATIVE); URINE UROBILINOGEN 0.2-1.0 mg/dL (0.2-1.0)
--- NOTE | 2017-07-08 19:20 | CP.PCM.CON ---
History of Present Illness - History of Present Illness History of Present Illness: SURGERY CONSULT NOTE FOR DR. SMITH 56F presents with generalized malaise and nausea. Patient states symptoms started on yesterday after going for her first treatment of chemotherapy. She underwent a partial colon resection with anastomosis last month in May for metastatic colon cancer. Patient states yesterday and overnight she was dry heaving but never vomited. Now she states she has a mild abdominal discomfort and generalized malaise. She admits to feeling hungry currently. PMH: Metastatis colon CA, DM, HIV PSH: Colon resection, Social: denies tobacco, alcohol, and illicit drugs Allergies: Levofloxacin, penicillin, moxifloxacin Past Patient History - Infectious Disease Hx of Infectious Diseases: None - Tetanus Immunizations Tetanus Immunization: Unknown - Past Medical History & Family History Past Medical History?: No - Past Social History Smoking Status: Former Smoker - CARDIAC Hx Hypercholesterolemia: Yes - PULMONARY Hx Asthma: Yes Hx Bronchitis: Yes Hx Chronic Obstructive Pulmonary Disease (COPD): Yes Hx Pneumonia: Yes - NEUROLOGICAL Hx Neurological Disorder: No - HEENT Hx HEENT Problems: Yes - RENAL Hx Chronic Kidney Disease: No - ENDOCRINE/METABOLIC Hx Endocrine Disorders: Yes - HEMATOLOGICAL/ONCOLOGICAL Hx Anemia: Yes Hx Human Immunodeficiency Virus (HIV): Yes - INTEGUMENTARY Hx Dermatological Problems: No - MUSCULOSKELETAL/RHEUMATOLOGICAL Hx Arthritis: Yes (feet) Hx Fractures: Yes - GASTROINTESTINAL Hx Gastrointestinal Disorders: No - GENITOURINARY/GYNECOLOGICAL Hx Genitourinary Disorders: No - PSYCHIATRIC Hx Psychophysiologic Disorder: No - SURGICAL HISTORY Hx Appendectomy: Yes - ANESTHESIA Hx Anesthesia: Yes Hx Anesthesia Reactions: No Hx Malignant Hyperthermia: No Meds Allergies/Adverse Reactions: Allergies Allergy/AdvReac Type Severity Reaction Status Date / Time levofloxacin [From Levaquin] Allergy NAUSEA Verified 05/27/15 11:34 Penicillins Allergy RASH Verified 05/15/16 12:51 moxifloxacin HCl AdvReac NAUSEA Verified 05/27/15 11:35 [From Avelox] Physical Exam - Constitutional Appears: Other Additional comments: uncomfortable - Head Exam Head Exam: ATRAUMATIC - ENT Exam ENT Exam: Mucous Membranes Moist - Respiratory Exam Respiratory Exam: Clear to Auscultation Bilateral, NORMAL BREATHING PATTERN - Cardiovascular Exam Cardiovascular Exam: REGULAR RHYTHM, +S1, +S2 - GI/Abdominal Exam GI & Abdominal Exam: Soft. absent: Distended, Firm, Guarding, Rebound, Rigid, Tenderness Additional comments: incision from operation is clean dry intact and healed - Neurological Exam Neurological exam: Alert, Oriented x3 - Psychiatric Exam Psychiatric exam: Normal Affect, Normal Mood - Skin Skin Exam: Dry, Intact, Normal Color, Warm Results - Vital Signs Recent Vital Signs: Last Vital Signs Temp 98.3 F 07/08/17 19:04 Pulse 94 H 07/08/17 19:04 Resp 20 07/08/17 19:04 BP 122/77 07/08/17 19:04 Pulse Ox 98 07/08/17 17:47 - Labs Result Diagrams: 07/08/17 13:15 07/08/17 13:15 Labs: Laboratory Results - last 24 hr 07/08/17 07/08/17 07/08/17 13:15 13:15 17:36 WBC 20.1 H D RBC 4.80 Hgb 10.6 L D Hct 34.7 MCV 72.3 L MCH 22.0 L MCHC 30.5 L RDW 23.5 H Plt Count 291 MPV 8.5 Neut % (Auto) 90.4 H Lymph % (Auto) 8.1 L [place] % (Auto) 0.8 Eos % (Auto) 0.4 Baso % (Auto) 0.3 Neut # (Auto) 18.2 H Lymph # (Auto) 1.6 [place] # (Auto) 0.2 Eos # (Auto) 0.1 Baso # (Auto) 0.1 Neutrophils % (Manual) 87 H Band Neutrophils % 3 H Lymphocytes % (Manual) 8 L Monocytes % (Manual) 1 Blast Cells % 1 H Platelet Estimate Normal Hypochromasia (manual) Slight Poikilocytosis (manual Slight Anisocytosis (manual) Moderate Ovalocytes Slight Stomatocytes Slight pO2 47 VBG pH 7.39 VBG pCO2 42 VBG HCO3 24.9 VBG Total CO2 26.7 VBG O2 Sat (Calc) 88.5 H VBG Base Excess 0.3 VBG Potassium 4.2 Glucose 293 H Lactate 1.3 FiO2 21.0 Sodium 138 137.0 Potassium 5.0 Chloride 98 106.0 Carbon Dioxide 23 Anion Gap 22 H BUN 18 H Creatinine 0.5 L Est GFR ( Amer) > 60 Est GFR (Non-Af Amer) > 60 Random Glucose 382 H Calcium 9.4 Total Bilirubin 0.8 AST 59 H ALT 50 Alkaline Phosphatase 235 H D Total Protein 8.1 Albumin 3.8 Globulin 4.3 H Albumin/Globulin Ratio 0.9 L Venous Blood Potassium 4.2 Urine Color Urine Clarity Urine pH Ur Specific [place] Urine Protein Urine Glucose (UA) Urine Ketones Urine Blood Urine Nitrate Urine Bilirubin Urine Urobilinogen Ur Leukocyte Esterase Urine RBC (Auto) Urine Microscopic WBC Ur Squamous Epith Cells Urine Bacteria 07/08/17 17:47 WBC RBC Hgb Hct MCV MCH MCHC RDW Plt Count MPV Neut % (Auto) Lymph % (Auto) [place] % (Auto) Eos % (Auto) Baso % (Auto) Neut # (Auto) Lymph # (Auto) [place] # (Auto) Eos # (Auto) Baso # (Auto) Neutrophils % (Manual) Band Neutrophils % Lymphocytes % (Manual) Monocytes % (Manual) Blast Cells % Platelet Estimate Hypochromasia (manual) Poikilocytosis (manual Anisocytosis (manual) Ovalocytes Stomatocytes pO2 VBG pH VBG pCO2 VBG HCO3 VBG Total CO2 VBG O2 Sat (Calc) VBG Base Excess VBG Potassium Glucose Lactate FiO2 Sodium Potassium Chloride Carbon Dioxide Anion Gap BUN Creatinine Est GFR ( Amer) Est GFR (Non-Af Amer) Random Glucose Calcium Total Bilirubin AST ALT Alkaline Phosphatase Total Protein Albumin Globulin Albumin/Globulin Ratio Venous Blood Potassium Urine Color Yellow Urine Clarity Slighty-cloudy Urine pH 6.0 Ur Specific [place] 1.038 H Urine Protein 30 Urine Glucose (UA) >=500 Urine Ketones Trace Urine Blood Negative Urine Nitrate Negative Urine Bilirubin Negative Urine Urobilinogen 0.2-1.0 Ur Leukocyte Esterase Neg Urine RBC (Auto) 3 Urine Microscopic WBC 1 Ur Squamous Epith Cells 4 Urine Bacteria Few H Assessment & Plan - Assessment and Plan (Free Text) Assessment: 56F presents with nausea/ generalized malaise, s/p first chemotherapy treatment Plan: Pain control Abx, IVFluids Diet as tolerated Hem/Onc consulted. Dr. Sharpe Further recs discuss Dr. Fifi Ball, PGY2
[2017-07-08] MEDS ORDERED: Oxycodone/Acetaminophen 5/325 mg Tab PO PRN (19:22)
--- NOTE | 2017-07-08 20:39 | CP.PCM.HP ---
History of Present Illness - History of Present Illness History of Present Illness: 56 female with significant PMH for stage 4 colon CA s/p resection, IDDM, HIV+ presents with nausea, general malaise since receiving first round of chemotherapy yesterday. She was unable to eat dinner last night because she didn 't feel well. Apparently, she was to get 'treatment' for post chemo nausea symptoms that she did not receive because she was unaware she needed to. At present she feels some left sided abdominal pain, but denies nausea. States she wants to eat food, has an appetite but does not want just jello or juice. States she has constipation, but has bowel movements everyday. No change in bowel habits. PMD: Dr. Lopez, Heme/onc: Dr. Sharpe, Surgeon: Dr. Calix PMH: Stage 4 Colon CA, IDDM, HIV PSH: 06/17: robotic left sigmoidectomy, robotic liver biopsy, left axillary deep kym dissection, Social: denies tobacco, alcohol, and illicit drugs Allergies: Levofloxacin, penicillin, moxifloxacin Medications reviewed, as per med rec. Family Hx: father had prostate cancer. both parents Code Status: Full code. She is accompanied by her , who makes decisions for her in the event she is unable to do so. Present on Admission - Present on Admission Any Indicators Present on Admission: No Review of Systems - Constitutional Constitutional: absent: Chills, Fever, Night Sweats - EENT Eyes: absent: Blurred Vision, Dry Eye Nose/Mouth/Throat: absent: Nasal Congestion, Nasal Discharge - Cardiovascular Cardiovascular: absent: Chest Pain, Dyspnea, Dyspnea on Exertion, Leg Edema, Pedal Edema - Respiratory Respiratory: absent: Cough, Dyspnea, Dyspnea on Exertion - Gastrointestinal Gastrointestinal: Abdominal Pain (left sided), Constipation (with daily BMs), Nausea. absent: Belching, Bloating, Change in Bowel Habits, Excessive Flatus, Vomiting - Genitourinary Genitourinary: absent: Change in Urinary Stream, Difficulty Urinating, Dysuria, Pyuria, Nocturia, Urinary Frequency - Musculoskeletal Musculoskeletal: absent: Abnormal Gait, Myalgias, Neck Pain - Integumentary Integumentary: absent: Dry Skin, Non-Healing Lesions, Rash, Skin Ulcer - Neurological Neurological: absent: Abnormal Gait, Abnormal Movements, Loss of Vision, Other Visual Disturbances Past Patient History - Infectious Disease Hx of Infectious Diseases: None - Tetanus Immunizations Tetanus Immunization: Unknown - Past Medical History & Family History Past Medical History?: No - Past Social History Smoking Status: Former Smoker - CARDIAC Hx Hypercholesterolemia: Yes - PULMONARY Hx Asthma: Yes Hx Bronchitis: Yes Hx Chronic Obstructive Pulmonary Disease (COPD): Yes Hx Pneumonia: Yes - NEUROLOGICAL Hx Neurological Disorder: No - HEENT Hx HEENT Problems: Yes - RENAL Hx Chronic Kidney Disease: No - ENDOCRINE/METABOLIC Hx Endocrine Disorders: Yes - HEMATOLOGICAL/ONCOLOGICAL Hx Anemia: Yes Hx Human Immunodeficiency Virus (HIV): Yes - INTEGUMENTARY Hx Dermatological Problems: No - MUSCULOSKELETAL/RHEUMATOLOGICAL Hx Arthritis: Yes (feet) Hx Fractures: Yes - GASTROINTESTINAL Hx Gastrointestinal Disorders: No - GENITOURINARY/GYNECOLOGICAL Hx Genitourinary Disorders: No - PSYCHIATRIC Hx Psychophysiologic Disorder: No - SURGICAL HISTORY Hx Appendectomy: Yes - ANESTHESIA Hx Anesthesia: Yes Hx Anesthesia Reactions: No Hx Malignant Hyperthermia: No Meds Allergies/Adverse Reactions: Allergies Allergy/AdvReac Type Severity Reaction Status Date / Time levofloxacin [From Levaquin] Allergy NAUSEA Verified 05/27/15 11:34 Penicillins Allergy RASH Verified 05/15/16 12:51 moxifloxacin HCl AdvReac NAUSEA Verified 05/27/15 11:35 [From Avelox] Physical Exam - Constitutional Appears: Other (uncomfortable) - Head Exam Head Exam: ATRAUMATIC, NORMAL INSPECTION, NORMOCEPHALIC - ENT Exam ENT Exam: Mucous Membranes Moist - Neck Exam Neck exam: Positive for: Normal Inspection - Respiratory Exam Respiratory Exam: Decreased Breath Sounds, NORMAL BREATHING PATTERN. absent: Rales, Rhonchi, Wheezes, Respiratory Distress - Cardiovascular Exam Cardiovascular Exam: REGULAR RHYTHM, +S1, +S2. absent: Diastolic murmur, Systolic Murmur - GI/Abdominal Exam GI & Abdominal Exam: Normal Bowel Sounds, Soft. absent: Distended, Guarding, Tenderness Additional comments: scars from laparoscopy noted, healed - Rectal Exam Rectal Exam: Deferred - Extremities Exam Extremities exam: Positive for: normal inspection. Negative for: pedal edema, tenderness - Neurological Exam Neurological exam: Alert, CN II-XII Intact, Oriented x3 - Psychiatric Exam Psychiatric exam: Depressed - Skin Skin Exam: Normal Color, Warm Results - Vital Signs Recent Vital Signs: Last Vital Signs Temp 98.1 F 07/08/17 19:18 Pulse 86 07/08/17 19:18 Resp 18 07/08/17 19:18 BP 132/74 07/08/17 19:18 Pulse Ox 97 07/08/17 19:18 - Labs Result Diagrams: 07/08/17 13:15 07/08/17 13:15 Labs: Laboratory Results - last 24 hr 07/08/17 07/08/17 07/08/17 13:15 13:15 17:36 WBC 20.1 H D RBC 4.80 Hgb 10.6 L D Hct 34.7 MCV 72.3 L MCH 22.0 L MCHC 30.5 L RDW 23.5 H Plt Count 291 MPV 8.5 Neut % (Auto) 90.4 H Lymph % (Auto) 8.1 L [place] % (Auto) 0.8 Eos % (Auto) 0.4 Baso % (Auto) 0.3 Neut # (Auto) 18.2 H Lymph # (Auto) 1.6 [place] # (Auto) 0.2 Eos # (Auto) 0.1 Baso # (Auto) 0.1 Neutrophils % (Manual) 87 H Band Neutrophils % 3 H Lymphocytes % (Manual) 8 L Monocytes % (Manual) 1 Blast Cells % 1 H Platelet Estimate Normal Hypochromasia (manual) Slight Poikilocytosis (manual Slight Anisocytosis (manual) Moderate Ovalocytes Slight Stomatocytes Slight pO2 47 VBG pH 7.39 VBG pCO2 42 VBG HCO3 24.9 VBG Total CO2 26.7 VBG O2 Sat (Calc) 88.5 H VBG Base Excess 0.3 VBG Potassium 4.2 Glucose 293 H Lactate 1.3 FiO2 21.0 Sodium 138 137.0 Potassium 5.0 Chloride 98 106.0 Carbon Dioxide 23 Anion Gap 22 H BUN 18 H Creatinine 0.5 L Est GFR ( Amer) > 60 Est GFR (Non-Af Amer) > 60 POC Glucose (mg/dL) Random Glucose 382 H Calcium 9.4 Total Bilirubin 0.8 AST 59 H ALT 50 Alkaline Phosphatase 235 H D Total Protein 8.1 Albumin 3.8 Globulin 4.3 H Albumin/Globulin Ratio 0.9 L Venous Blood Potassium 4.2 Urine Color Urine Clarity Urine pH Ur Specific [place] Urine Protein Urine Glucose (UA) Urine Ketones Urine Blood Urine Nitrate Urine Bilirubin Urine Urobilinogen Ur Leukocyte Esterase Urine RBC (Auto) Urine Microscopic WBC Ur Squamous Epith Cells Urine Bacteria 07/08/17 07/08/17 17:47 20:26 WBC RBC Hgb Hct MCV MCH MCHC RDW Plt Count MPV Neut % (Auto) Lymph % (Auto) [place] % (Auto) Eos % (Auto) Baso % (Auto) Neut # (Auto) Lymph # (Auto) [place] # (Auto) Eos # (Auto) Baso # (Auto) Neutrophils % (Manual) Band Neutrophils % Lymphocytes % (Manual) Monocytes % (Manual) Blast Cells % Platelet Estimate Hypochromasia (manual) Poikilocytosis (manual Anisocytosis (manual) Ovalocytes Stomatocytes pO2 VBG pH VBG pCO2 VBG HCO3 VBG Total CO2 VBG O2 Sat (Calc) VBG Base Excess VBG Potassium Glucose Lactate FiO2 Sodium Potassium Chloride Carbon Dioxide Anion Gap BUN Creatinine Est GFR ( Amer) Est GFR (Non-Af Amer) POC Glucose (mg/dL) 261 H Random Glucose Calcium Total Bilirubin AST ALT Alkaline Phosphatase Total Protein Albumin Globulin Albumin/Globulin Ratio Venous Blood Potassium Urine Color Yellow Urine Clarity Slighty-cloudy Urine pH 6.0 Ur Specific [place] 1.038 H Urine Protein 30 Urine Glucose (UA) >=500 Urine Ketones Trace Urine Blood Negative Urine Nitrate Negative Urine Bilirubin Negative Urine Urobilinogen 0.2-1.0 Ur Leukocyte Esterase Neg Urine RBC (Auto) 3 Urine Microscopic WBC 1 Ur Squamous Epith Cells 4 Urine Bacteria Few H Assessment & Plan (1) Abdominal pain Assessment and Plan: 56 year old female with HIV, IDDM, Stage 4 colon CA, s/p resection and first round of chemotherapy on 07.07.17, admitted with abdominal pain, nausea, leukocytosis. -Zofran scheduled for nausea -Elevated glucose, no ketones in the urine but could possibly be contributing to abdominal pain. follow accuchecks and resume home insulin, hga1c in AM -reports constipation- will start her on colace and follow -Surgical consult: (Dr. Calix) Status: Acute (2) Metastatic cancer Assessment and Plan: Stage 4 colon cancer, s/p robotic left sigmoid resection, s/p round 1 chemotherapy on 07.07.17. Surgery and heme.onc consults. Heme/onc: Dr. Jacobson pain control Status: Acute (3) Leukocytosis Assessment and Plan: No source of infection, however patient is immunosuppressed in the setting of HIV and s/p chemotherapy. She was given 1 dose of vancomycin in the ED. ID consult: Dr. Aragon for further management Repeat CBC in AM. Status: Acute (4) IDDM (insulin dependent diabetes mellitus) Assessment and Plan: appears to be uncontrolled, UA+ glucose >500. -HGA1c in AM -Accuchecks ACHS -Resume home insulin dosing Status: Chronic (5) HIV (human immunodeficiency virus infection) Assessment and Plan: does not appear to be on ART. -last CD4 count from May 2017. -ID consult. Status: Chronic (6) Anemia Assessment and Plan: chronic, patient is on feosol, states this is how her cancer was diagnosed last month. -repeat cbc in am -heme/onc on consult. Status: Chronic (7) DVT prophylaxis Assessment and Plan: lovenox 40 sc scds high risk for DVT due to CA diagnosis Status: Acute
[2017-07-08] MEDS: Sodium Chloride 0.9% 1,000 ML IV SCH (21:43)
[2017-07-09] MEDS: Aztreonam 1 GM in Sodium Chloride 0.9% 100 ML IVPB SCH ×3 (00:31→21:48)
[2017-07-09] MEDS ORDERED: Vancomycin 500 mg Inj IVPB SCH (01:00)
[2017-07-09] MEDS ORDERED: Vancomycin 1.25 GM in Sodium Chloride 0.9% 500 ML IVPB SCH (01:00)
--- NOTE | 2017-07-09 05:04 | CP.PCM.PN ---
Subjective - Date & Time of Evaluation Date of Evaluation: 07/09/17 Time of Evaluation: 05:02 - Subjective Subjective: SURGERY PROGRESS NOTE FOR DR. SMITH 56M seen and examined at bedside. Patient states her symptoms have resolved. She denies any pain, nausea, or malaise. She does states she is just tired and wants to sleep. Tolerating diet. Objective - Vital Signs/Intake and Output Vital Signs (last 24 hours): Temp Pulse Resp BP Pulse Ox 98.8 F 75 18 133/79 97 07/09/17 00:38 07/09/17 00:38 07/09/17 00:38 07/09/17 00:38 07/09/17 00:38 - Medications Medications: Current Medications Acetaminophen (Tylenol 325mg Tab) 650 mg PO Q6 PRN PRN Reason: Pain, Mild (1-3) Last Admin: 07/08/17 21:45 Dose: 650 mg Alprazolam (Xanax) 0.5 mg PO Q8 PRN PRN Reason: Anxiety Enoxaparin Sodium (Lovenox) 40 mg SC DAILY [facility] PRN Reason: Protocol Ferrous Sulfate (Feosol) 325 mg PO DAILY [facility] Home Med (Eszopiclone [Lunesta]) 3 mg PO HS [facility] Home Med (Insulin Glargine,Hum.Rec.Anlog [Juan Murphy]) 60 unit SQ DAILY [facility] Sodium Chloride (Sodium Chloride 0.9%) 1,000 mls @ 125 mls/hr IV .Q8H [facility] Stop: 07/09/17 19:32 Last Admin: 07/08/17 21:43 Dose: 125 mls/hr Aztreonam 1 gm/ Sodium (Chloride) 100 mls @ 100 mls/hr IVPB Q12 [facility] PRN Reason: Protocol Last Admin: 07/09/17 00:31 Dose: 100 mls/hr Vancomycin HCl 1.25 gm/ Sodium (Chloride) 500 mls @ 333.333 mls/hr IVPB Q12H [facility] Last Admin: 07/09/17 01:34 Dose: 333.333 mls/hr Insulin Human Lispro (Humalog) 24 units SC AC [facility] Ondansetron HCl (Zofran Inj) 8 mg IVP Q8 [facility] Last Admin: 07/08/17 23:32 Dose: 8 mg Oxycodone/Acetaminophen (Percocet 5/325 Mg Tab) 1 tab PO Q4 PRN PRN Reason: Pain, moderate (4-7) Stop: 07/11/17 19:23 Paroxetine HCl (Paxil) 10 mg PO DAILY [facility] - Labs Labs: 07/08/17 13:15 07/08/17 13:15 - Constitutional Appears: Well, Non-toxic, No Acute Distress, Other (tired) - Respiratory Exam Respiratory Exam: Clear to Ausculation Bilateral, NORMAL BREATHING PATTERN - Cardiovascular Exam Cardiovascular Exam: REGULAR RHYTHM, +S1, +S2 - GI/Abdominal Exam GI & Abdominal Exam: Soft. absent: Distended, Firm, Guarding, Rigid, Tenderness , Rebound - Neurological Exam Neurological Exam: Alert, Awake - Psychiatric Exam Additional comments: tired - Skin Skin Exam: Dry, Intact, Normal Color, Warm Assessment and Plan - Assessment and Plan (Free Text) Assessment: 56F with metastatic colon CA s/p colon resection last month and first dose of chemotherapy 07/07/17 Plan: pain control hem/onc consult manage side effects of chemotherapy Further recs discuss with Dr. Fifi Ball, PGY2
[2017-07-09] MEDS: Sodium Chloride 0.9% 1,000 ML IV SCH ×2 (06:10→13:02)
[2017-07-09 07:24] LABS: BASO % 0.1 % (0.0-2.0); EOS # 0.2 K/uL (0.0-0.7); EOS % 0.9 % (0.0-4.0); HEMOGLOBIN 9.3 g/dL (12.0-16.0); LYMPH % 9.9 % (20.0-40.0); MEAN CELL VOLUME 73.1 fl (81.0-99.0); MEAN CORPUSCULAR HEMOGLOBIN 22.3 pg (27.0-31.0); MEAN CORPUSCULAR HGB CONC 30.5 g/dL (33.0-37.0); MONO # 0.2 K/uL (0.0-0.8); MONO % 1.1 % (0.0-10.0); NEUT # 17.7 K/uL (1.8-7.0); NRBC % 0.2 % (0.0-0.0); RBC 4.16 Mil/uL (3.80-5.20); RED CELL DISTRIBUTION WIDTH 23.5 % (11.5-14.5); WHITE BLOOD COUNT 20.2 K/uL (4.8-10.8)
[2017-07-09 08:03] LABS: ALB/GLOB RATIO 0.9 (1.0-2.1); ALBUMIN 3.1 g/dL (3.5-5.0); ALT/SGPT 39 U/L (9-52); AST/SGOT 33 U/L (14-36); BLOOD UREA NITROGEN 11 mg/dl (7-17); CALCIUM 8.5 mg/dL (8.4-10.2); GFR AFRICAN-AMERICAN > 60; GFR NON-AFRICAN AMERICAN > 60
[2017-07-09] MEDS: Enoxaparin 40 mg Syringe SC SCH (09:05)
[2017-07-09] MEDS: Insulin Lispro (humaLOG) 100 Units/ml Inj SC SCH ×3 (09:06→18:14)
[2017-07-09] MEDS: Insulin Detemir 100 Units/ml Inj SC SCH (09:15)
[2017-07-09] MEDS ORDERED: POLYETHYLENE GLYCOL 3350 17 GM/Dose PACKET PO ONE (11:58)
--- NOTE | 2017-07-09 12:21 | CP.PCM.PN ---
Subjective - Date & Time of Evaluation Date of Evaluation: 07/09/17 Time of Evaluation: 08:00 - Subjective Subjective: Pt seen and examined this am. Seen vomiting into a bag at the bedside. Seen later in the afternoon, in bed, comfortable. States her nausea and vomiting has subsided. Tolerated her breakfast and lunch. Denies abdominal pain, cough, dysuria, fever, chills. Objective - Vital Signs/Intake and Output Vital Signs (last 24 hours): Temp Pulse Resp BP Pulse Ox 98.2 F 79 18 122/64 97 07/09/17 07:41 07/09/17 07:41 07/09/17 07:41 07/09/17 07:41 07/09/17 07:41 - Medications Medications: Current Medications Acetaminophen (Tylenol 325mg Tab) 650 mg PO Q6 PRN PRN Reason: Pain, Mild (1-3) Last Admin: 07/08/17 21:45 Dose: 650 mg Alprazolam (Xanax) 0.5 mg PO Q8 PRN PRN Reason: Anxiety Docusate Sodium (Colace) 100 mg PO BID [facility] Enoxaparin Sodium (Lovenox) 40 mg SC DAILY [facility] PRN Reason: Protocol Last Admin: 07/09/17 09:05 Dose: 40 mg Ferrous Sulfate (Feosol) 325 mg PO DAILY [facility] Last Admin: 07/09/17 09:05 Dose: 325 mg Sodium Chloride (Sodium Chloride 0.9%) 1,000 mls @ 125 mls/hr IV .Q8H [facility] Stop: 07/09/17 19:32 Last Admin: 07/09/17 06:10 Dose: Not Given Aztreonam 1 gm/ Sodium (Chloride) 100 mls @ 100 mls/hr IVPB Q12 [facility] PRN Reason: Protocol Last Admin: 07/09/17 09:05 Dose: 100 mls/hr Insulin Detemir (Levemir) 60 units SC DAILY [facility] Last Admin: 07/09/17 09:15 Dose: 60 units Insulin Human Lispro (Humalog) 24 units SC AC [facility] Last Admin: 07/09/17 11:43 Dose: 24 units Ondansetron HCl (Zofran Inj) 8 mg IVP Q8 [facility] Last Admin: 07/09/17 09:14 Dose: 8 mg Oxycodone/Acetaminophen (Percocet 5/325 Mg Tab) 1 tab PO Q4 PRN PRN Reason: Pain, moderate (4-7) Stop: 07/11/17 19:23 Paroxetine HCl (Paxil) 10 mg PO DAILY [facility] Last Admin: 07/09/17 09:05 Dose: 10 mg Polyethylene Glycol (Miralax) 17 gm PO ONCE ONE Stop: 07/09/17 11:59 - Labs Labs: 07/09/17 05:39 07/09/17 05:39 - Constitutional Appears: Well, Non-toxic (Actively vomiting) - Head Exam Head Exam: NORMAL INSPECTION - ENT Exam ENT Exam: Mucous Membranes Moist - Respiratory Exam Respiratory Exam: Clear to Ausculation Bilateral. absent: Rales, Wheezes - Cardiovascular Exam Cardiovascular Exam: REGULAR RHYTHM, +S1, +S2. absent: Murmur - GI/Abdominal Exam GI & Abdominal Exam: Soft, Normal Bowel Sounds. absent: Distended, Guarding, Tenderness - Extremities Exam Extremities Exam: Normal Inspection. absent: Pedal Edema - Neurological Exam Neurological Exam: Alert, Awake, Oriented x3 - Psychiatric Exam Psychiatric exam: Depressed, Normal Affect - Skin Skin Exam: Normal Color Assessment and Plan - Assessment and Plan (Free Text) Assessment: 56 year old female with HIV, IDDM, Stage 4 colon CA, s/p resection and first round of chemotherapy on 07.07.17, admitted with abdominal pain, nausea, leukocytosis. Awaiting consults from Heme/Onc and ID. #[place]/Vomiting -Likely a side effect of chemotherapy -Zofran scheduled for nausea -Reglanx1 today + Reglan prn -Surgical Consult, Dr. Calix #Abdominal Pain -Likely 2/2 to constipation along with concurrent vomiting -Colace 100mg BID and Miralax -Abdominal CT, unremarkable #Leucocytosis -WBC 20.2 today, no left shift -Cxray, U/A wnl -F/U procalcitonin -No source of infection, however patient is immunosuppressed in the setting of HIV and s/p chemotherapy. -s/p 1 of Vancomycin in the ED. -Currently on Aztreonam given allergy hx -ID consult: Dr. Aragon for further management -Repeat CBC in AM. #Metastatic Cancer Stage 4 colon cancer, s/p robotic left sigmoid resection, s/p round 1 chemotherapy on 3.15.18. Surgery Consulted Heme-Onc Consulted (Dr. Sharpe) pain control #IDDM -Sugars elevated in 200's, pt states this is where her BS usually lie -F/U Hg A1c -Resumed home basal/bolus regimen, will adjust as needed -accuchecks #HIV -Not on GARCIA therapy -Last CD4 240/ 23% -ID Consulted #DVT PPX -Lovenox 40sc -SCD's Full Code
--- NOTE | 2017-07-09 15:02 | CARD ---
APPROVED REPORT EKG Measurement Heart [id number] <Conclusion> Normal sinus rhythm Moderate voltage criteria for LVH, may be normal variant Borderline ECG
[2017-07-10 08:05] VITALS: RESP 18; O2SAT 97
--- NOTE | 2017-07-10 08:13 | CP.PCM.DIS ---
Provider - Provider Date of Admission: 07/08/17 17:39 Attending physician: Gary Anderson MD Time Spent in preparation of Discharge (in minutes): 45 Diagnosis - Discharge Diagnosis (1) Chemotherapy induced nausea and vomiting Status: Acute Comment: Pt hydrated, and placed on Zofran and PRN Reglan for nausea, vomiting. She is now improved and is stable for discharge to home with appropriate anti- emetics and has f/u with Dr Zee (Oncology) Tuesday 07/11. 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 This was a question given absence of any other associated infectious symptoms. Stable for discharge. Hospital Course - Lab Results Lab Results: Micro Results 07/08/17 17:47 Blood-Venous Blood Culture - Preliminary NO GROWTH AFTER 24 HOURS Most Recent Lab Values WBC 20.2 K/uL (4.8-10.8) H 07/09/17 05:39 RBC 4.16 Mil/uL (3.80-5.20) 07/09/17 05:39 Hgb 9.3 g/dL (12.0-16.0) L 07/09/17 05:39 Hct 30.4 % (34.0-47.0) L 07/09/17 05:39 MCV 73.1 fl (81.0-99.0) L 07/09/17 05:39 MCH 22.3 pg (27.0-31.0) L 07/09/17 05:39 MCHC 30.5 g/dL (33.0-37.0) L 07/09/17 05:39 RDW 23.5 % (11.5-14.5) H 07/09/17 05:39 Plt Count 238 K/uL (130-400) 07/09/17 05:39 MPV 9.0 fl (7.2-11.7) 07/09/17 05:39 Neut % (Auto) 88.0 % (50.0-75.0) H 07/09/17 05:39 Lymph % (Auto) 9.9 % (20.0-40.0) L 07/09/17 05:39 [place] % (Auto) 1.1 % (0.0-10.0) 07/09/17 05:39 Eos % (Auto) 0.9 % (0.0-4.0) 07/09/17 05:39 Baso % (Auto) 0.1 % (0.0-2.0) 07/09/17 05:39 Neut # (Auto) 17.7 K/uL (1.8-7.0) H 07/09/17 05:39 Lymph # (Auto) 2.0 K/uL (1.0-4.3) 07/09/17 05:39 [place] # (Auto) 0.2 K/uL (0.0-0.8) 07/09/17 05:39 Eos # (Auto) 0.2 K/uL (0.0-0.7) 07/09/17 05:39 Baso # (Auto) 0.0 K/uL (0.0-0.2) 07/09/17 05:39 Neutrophils % (Manual) 87 % (42-75) H 07/08/17 13:15 Band Neutrophils % 3 % (0-2) H 07/08/17 13:15 Lymphocytes % (Manual) 8 % (20-50) L 07/08/17 13:15 Monocytes % (Manual) 1 % (0-10) 07/08/17 13:15 Blast Cells % 1 % (0-0) H 07/08/17 13:15 Platelet Estimate Normal (NORMAL) 07/08/17 13:15 Hypochromasia (manual) Slight 07/08/17 13:15 Poikilocytosis (manual Slight 07/08/17 13:15 Anisocytosis (manual) Moderate 07/08/17 13:15 Ovalocytes Slight 07/08/17 13:15 Stomatocytes Slight 07/08/17 13:15 pO2 47 mm/Hg (30-55) 07/08/17 17:36 VBG pH 7.39 (7.32-7.43) 07/08/17 17:36 VBG pCO2 42 mmHg (40-60) 07/08/17 17:36 VBG HCO3 24.9 mmol/L 07/08/17 17:36 VBG Total CO2 26.7 mmol/L (22-28) 07/08/17 17:36 VBG O2 Sat (Calc) 88.5 % (40-65) H 07/08/17 17:36 VBG Base Excess 0.3 mmol/L (0.0-2.0) 07/08/17 17:36 VBG Potassium 4.2 mmol/L (3.6-5.2) 07/08/17 17:36 Sodium 137.0 mmol/L (132-148) 07/08/17 17:36 Chloride 106.0 mmol/L (98-107) 07/08/17 17:36 Glucose 293 mg/dL (65-105) H 07/08/17 17:36 Lactate 1.3 mmol/L (0.7-2.1) 07/08/17 17:36 FiO2 21.0 % 07/08/17 17:36 Sodium 138 mmol/l (132-148) 07/09/17 05:39 Potassium 3.8 MMOL/L (3.6-5.0) 07/09/17 05:39 Chloride 100 mmol/L (98-107) 07/09/17 05:39 Carbon Dioxide 24 mmol/L (22-30) 07/09/17 05:39 Anion Gap 18 (10-20) 07/09/17 05:39 BUN 11 mg/dl (7-17) 07/09/17 05:39 Creatinine 0.5 mg/dl (0.7-1.2) L 07/09/17 05:39 Est GFR ( Amer) > 60 07/09/17 05:39 Est GFR (Non-Af Amer) > 60 07/09/17 05:39 POC Glucose (mg/dL) 209 mg/dL (65-110) H 07/10/17 05:37 Random Glucose 233 mg/dL (65-105) H 07/09/17 05:39 Calcium 8.5 mg/dL (8.4-10.2) 07/09/17 05:39 Total Bilirubin 0.4 mg/dl (0.2-1.3) 07/09/17 05:39 AST 33 U/L (14-36) 07/09/17 05:39 ALT 39 U/L (9-52) 07/09/17 05:39 Alkaline Phosphatase 203 U/L (38-126) H 07/09/17 05:39 Total Protein 6.7 G/DL (6.3-8.2) 07/09/17 05:39 Albumin 3.1 g/dL (3.5-5.0) L 07/09/17 05:39 Globulin 3.5 gm/dL (2.2-3.9) 07/09/17 05:39 Albumin/Globulin Ratio 0.9 (1.0-2.1) L 07/09/17 05:39 Procalcitonin 0.22 NG/ML (0.19-0.49) 07/09/17 07:39 Venous Blood Potassium 4.2 mmol/L (3.6-5.2) 07/08/17 17:36 Urine Color Yellow (YELLOW) 07/08/17 17:47 Urine Clarity Slighty-cloudy (Clear) 07/08/17 17:47 Urine pH 6.0 (5.0-8.0) 07/08/17 17:47 Ur Specific [place] 1.038 (1.003-1.030) H 07/08/17 17:47 Urine Protein 30 mg/dL (NEGATIVE) 07/08/17 17:47 Urine Glucose (UA) >=500 mg/dL (Normal) 07/08/17 17:47 Urine Ketones Trace mg/dL (NEGATIVE) 07/08/17 17:47 Urine Blood Negative (NEGATIVE) 07/08/17 17:47 Urine Nitrate Negative (NEGATIVE) 07/08/17 17:47 Urine Bilirubin Negative (NEGATIVE) 07/08/17 17:47 Urine Urobilinogen 0.2-1.0 mg/dL (0.2-1.0) 07/08/17 17:47 Ur Leukocyte Esterase Neg [place]/uL (Negative) 07/08/17 17:47 Urine RBC (Auto) 3 /hpf (0-3) 07/08/17 17:47 Urine Microscopic WBC 1 /hpf (0-5) 07/08/17 17:47 Ur Squamous Epith Cells 4 /hpf (0-5) 07/08/17 17:47 Urine Bacteria Few (<OCC) H 07/08/17 17:47 - Hospital Course Hospital Course: 56F with stage 4 colon ca seen and examined at bedside with attending. Pt admitted after receiving chemotherapy and some unspecified miscommunication regarding anti-emetics. She did not have any signs or symptoms of infectious nature, improved on anti-emetics, tolerating PO, and now stable for discharge. NO change to home medications, new medications as noted in d/c document. Discharge Exam - Head Exam Head Exam: NORMAL INSPECTION - Eye Exam Eye Exam: EOMI, Normal appearance - ENT Exam ENT Exam: Mucous Membranes Moist - Respiratory Exam Respiratory Exam: Clear to PA & Lateral, NORMAL BREATHING PATTERN. absent: Rhonchi, Wheezes - Cardiovascular Exam Cardiovascular Exam: REGULAR RHYTHM, +S1, +S2 - GI/Abdominal Exam GI & Abdominal Exam: Normal Bowel Sounds, Soft. absent: Tenderness - Extremities Exam Extremities exam: normal capillary refill, pedal pulses present - Neurological Exam Neurological exam: Alert, Oriented x3 - Psychiatric Exam Psychiatric exam: Normal Affect, Normal Mood - Skin Skin Exam: Dry, Warm Discharge Plan - Discharge Medications Prescriptions: Docusate [Colace] 100 mg PO DAILY #30 cap Metoclopramide HCl [Reglan] 10 mg PO Q6H PRN #10 tablet PRN Reason: Nausea/Vomiting despite Zofran Ondansetron ODT [Zofran ODT] 8 mg PO Q8H PRN #21 odt PRN Reason: Nausea/Vomiting - Follow Up Plan Condition: IMPROVED Disposition: HOME/ ROUTINE Patient education suggested?: Yes Instructions: Nausea and Vomiting With Cancer Treatment, Pegfilgrastim Referrals: Isac Sharpe MD [Staff Provider] - 3 Days Gary Anderson MD [Family Provider] - 1 Week
[2017-07-10] MEDS: Insulin Lispro (humaLOG) 100 Units/ml Inj SC SCH ×2 (08:30→13:17)
[2017-07-10] MEDS: Insulin Detemir 100 Units/ml Inj SC SCH (08:52)
[2017-07-10] MEDS: Enoxaparin 40 mg Syringe SC SCH (08:52)
[2017-07-10 11:48] VITALS: BP 125/70; PULSE 86; TEMP 97.6
== END 2017-07-10 15:05 | disposition home or self-care (01) | DRG 376 ==
LOC: H.ER 12:40 → H.ERHOLD 17:39 → H.TEL 23:31
PROVIDERS: ADMIT Family Medicine; ATTEND Family Medicine
DX: C18.9 Malignant neoplasm of colon, unspecified (principal); E11.65 Type 2 diabetes mellitus with hyperglycemia; D64.9 Anemia, unspecified; E78.00 Pure hypercholesterolemia, unspecified; J40 Bronchitis, not specified as acute or chronic; J44.9 Chronic obstructive pulmonary disease, unspecified; K59.00 Constipation, unspecified; T45.1X5A Adverse effect of antineoplastic and immunosuppressive drugs, initial encounter; Z79.4 Long term (current) use of insulin; Z87.01 Personal history of pneumonia (recurrent); Z87.891 Personal history of nicotine dependence; Z90.49 Acquired absence of other specified parts of digestive tract; M19.90 Unspecified osteoarthritis, unspecified site; Z79.899 Other long term (current) drug therapy; Z21 Asymptomatic human immunodeficiency virus [HIV] infection status